=== PATIENT | female | born 1990 | race Caucasian/White ===

== ENCOUNTER 2016-11-21 04:54 | Emergency (ER) | payer SELFPAY ==
[~2016-11-21] VITALS: Ht 152.4 cm; Wt 46.7 kg
[2016-11-21 05:18] VITALS: BP 114/60
== END 2016-11-21 07:13 | disposition home or self-care (01) ==
LOC: EDBD → ER 05:14
DX: M79.674 Pain in right toe(s) (principal); M79.675 Pain in left toe(s); M79.671 Pain in right foot; M79.672 Pain in left foot; Z89.412 Acquired absence of left great toe; Z89.411 Acquired absence of right great toe

== ENCOUNTER 2016-11-26 13:47 | Emergency (ER) | payer MEDICAID ==
[~2016-11-26] VITALS: Ht 165.1 cm; Wt 49.9 kg
[2016-11-26 14:23] VITALS: BP 124/70
== END 2016-11-26 19:28 | disposition left against medical advice (07) ==
LOC: ER 13:47 → EDBD 13:47 → EDUNIT# 13:47 → ER 19:28
DX: T74.21XA Adult sexual abuse, confirmed, initial encounter (principal); Z53.21 Procedure and treatment not carried out due to patient leaving prior to being seen by health care provider

== ENCOUNTER 2016-11-27 05:10 | Emergency (ER) | payer MEDICAID ==
[~2016-11-27] VITALS: Ht 157.5 cm; Wt 59.0 kg
[2016-11-27 09:10] VITALS: BP 110/72
== END 2016-11-27 09:20 | disposition home or self-care (01) ==
LOC: ER 05:10
DX: R10.2 Pelvic and perineal pain (principal); M79.1 Myalgia; Z91.018 Allergy to other foods; T74.21XA Adult sexual abuse, confirmed, initial encounter

== ENCOUNTER 2016-12-06 08:26 | Emergency (ER) | payer MEDICAID ==
[~2016-12-06] VITALS: Ht 162.6 cm; Wt 54.9 kg
[2016-12-06] MEDS ORDERED: SODIUM CHLORIDE 0.9% 1,000 ML IV ONE ×2 (10:51→18:15)
[2016-12-06] MEDS ORDERED: ALPRAZolam 0.5 MG TAB PO ONE (11:00)
[2016-12-06] MEDS ORDERED: OLANZapine 5 MG TAB PO ONE (11:00)
[2016-12-06 13:14] LABS: Basophils # (auto) 0.1 uL; Basophils % (auto) 0.6 % (0.0-2.0); CONDITION Y; Eosinophils # (auto) 0.2 uL; Eosinophils % (auto) 2.3 % (0.0-7.0); Hematocrit 37.3 % (36.0-46.0); Hemoglobin 12.6 g/dL (12.2-16.2); Lymphocytes # (auto) 1.4 uL; Lymphocytes % (auto) 17.9 % (10.0-50.0); Mean Corpuscular Hemoglobin 32.1 pg (28.0-32.0); Mean Corpuscular Hgb Conc. 33.7 g/dL (32.0-36.0); Mean Corpuscular Volume 95.3 fL (80.0-100.0); Mean Platelet Volume 8.3 fL (7.4-10.4); Monocytes # (auto) 0.9 uL; Monocytes % (auto) 11.2 % (0.0-12.0); Neutrophils # (auto) 5.3 uL; Platelet Count (auto) 315 10^3/uL (140-450); Red Cell Distribution Width 12.1 % (11.6-16.0); White Blood Cell 7.8 10^3/uL (4.4-10.8)
[2016-12-06 13:30] LABS: Albumin 3.2 g/dL (3.4-5.0); Alkaline Phosphatase 82 U/L (45-117); Anion Gap 9 (5-15); Aspartate Aminotransferase 22 U/L (15-37); BUN/Creatinine Ratio 16.1; Bilirubin, Total 0.6 mg/dL (0.2-1.0); Blood Urea Nitrogen 9 mg/dL (7-18); Calcium 8.3 mg/dL (8.5-10.1); Carbon Dioxide 24 mmol/L (21-32); Chloride 104 mmol/L (98-107); GFR African American 168 mL/min; GFR Non-African American 139 mL/min; Glucose 88 mg/dL (74-106); Potassium 3.3 mmol/L (3.5-5.1); Sodium 137 mmol/L (136-145); Total Protein 6.7 g/dL (6.4-8.2)
[2016-12-06 21:19] LABS: Urine Bilirubin Negative (Negative); Urine Color Yellow (Yellow); Urine Glucose Normal (Normal); Urine Mucus FEW (None Seen); Urine Nitrite Negative (Negative); Urine RBC 12 /hpf (0 - 4); Urine Squamous Epithelial Cell FEW /hpf (<5); Urine Urobilinogen Normal (Negative); Urine pH 5.5 (5.0-8.0)
[2016-12-06 21:22] LABS: Urine Blood 2+ /uL (Negative); Urine Ketone 1+ (Negative)
[2016-12-07] MEDS ORDERED: diphenhdrAMINE HCL 50 MG/1 ML VL ONE (04:27)
[2016-12-07] MEDS ORDERED: LORazepam 2MG/ML-1ML VIAL ONE (04:28)
[2016-12-07] MEDS ORDERED: OLANZapine 5 MG TAB PO ONE (06:00)
[2016-12-07] MEDS ORDERED: PROMETHAZINE W/CODEINE 5 ML ORAL SYRUP PO ONE (21:00)
[2016-12-08 09:59] VITALS: BP 109/66
== END 2016-12-06 10:34 | disposition short-term general hospital (02) ==
LOC: EDBD 08:26 → ER 08:26 → EDUNIT# 08:26 → ER 10:34
DX: F20.9 Schizophrenia, unspecified (principal); E87.6 Hypokalemia; E44.1 Mild protein-calorie malnutrition; Z91.14 Patient's other noncompliance with medication regimen; F31.9 Bipolar disorder, unspecified; M79.671 Pain in right foot
CPT/HCPCS: 36415; 80053; 80307; 80320; 81001; 83735; 84443; 84702; 85025; 96360; 99284; J7030; A4565